=== PATIENT | male | born 1970 | race Caucasian/White ===

== ENCOUNTER 2017-07-20 10:51 | Emergency (ER) | payer BC ==
[2017-07-20] MEDS ORDERED: Morphine INJ* 2 MG/ML 1 ML CARPUJECT IV ONE (12:30)
[2017-07-20] MEDS ORDERED: NS 0.9% 1000 ML* 1,000 ML IV ONE (12:30)
[2017-07-20] MEDS ORDERED: Morphine INJ* 2 MG/ML 1 ML SYRINGE (TWO MG - NEW SYRINGE VERSION) ONE (12:41)
[2017-07-20 13:13] LABS: ABS Basophils 0.1 10^3/ul (0-0.2); ABS Eosinophils 0.1 10^3/ul (0-0.6); ABS Monocytes 0.6 10^3/ul (0-0.8); ABS Neutrophils 10.8 10^3/ul (1.5-7.7); ABS Nucleated RBC 0 10^3/ul; Eosinophil % 0.4 % (0-6); Hematocrit 43 % (42-52); Hemoglobin 14.3 g/dl (14.0-18.0); Lymphocyte % 14.7 % (25-47); Mean Corpuscular HGB Conc 34 g/dl (31-36); Mean Corpuscular Hemoglobin 32 pg (27-31); Mean Corpuscular Volume 96 fL (80-94); Mean Platelet Volume 8 um3 (7.4-10.4); Nucleated Red Blood Cells % 0; Platelet Count 236 10^3/ul (150-450); Red Blood Count 4.45 10^6/ul (4.0-5.4); Red Cell Distribution Width 13 % (10.5-15); White Blood Count 13.4 10^3/ul (3.5-10.8)
[2017-07-20 13:20] LABS: Urine Appearance Cloudy; Urine Blood 3+ (Negative); Urine Color Amber; Urine Ketones Negative (Negative); Urine Protein 1+(30 mg/dL) (Negative); Urine Specific Gravity 1.024 (1.010-1.030); Urine Urobilinogen Negative (Negative)
[2017-07-20 13:27] LABS: EGFR Non-African American 72.2 (>60)
--- NOTE | 2017-07-20 13:56 | RAD ---
INDICATION: Right flank pain COMPARISON: None TECHNIQUE: Noncontrast axial source images were acquired from the level hemidiaphragms to the symphysis pubis as part of CT imaging for renal stone. Lung bases: The lung bases are clear. Liver: The liver is normal in size. Noncontrast imaging shows no evidence of a hepatic mass or ductal dilatation. Gallbladder: There are no calcified gallstones. There is no evidence of wall thickening or pericholecystic fluid.. Spleen: The spleen is normal in size. The noncontrast CT appearance is normal. Pancreas: Noncontrast imaging shows no pancreatic mass or ductal dilitation. Adrenal glands: No masses are identified. Kidneys/Bladder: There is a nonobstructed 2 mm upper pole renal calculus. There is no hydronephrosis. There is mild right-sided hydroureter with a 1 to 2 mm calculus at the right ureterovesical junction (or this calculus has just passed into the bladder and presence of. Noncontrast imaging shows no evidence of a renal mass. The bladder is unremarkable.. Adenopathy: There is no evidence of intraperitoneal or retroperitoneal adenopathy. Evaluation is limited without oral contrast. Fluid collections: There are no free or localized fluid collections. Vessels: The aorta and iliac vessels are normal in caliber. There are no significant atherosclerotic changes. The IVC appears normal Pelvic organs: The prostate and seminal vesicles appear normal GI tract: Evaluation of the bowel is limited without oral contrast. The stomach, small bowel, and lower GI tract appear grossly normal. There are no obstructive findings. The appendix is visualized and appears normal. Soft tissues: No soft tissue abnormalities of the extraperitoneal abdomen or pelvis are identified. Osseous structures: There are no acute osseous findings. IMPRESSION: 1 TO 2 MM CALCULUS NEAR THE RIGHT UVJ WITH MILD RIGHT-SIDED HYDROURETER. RIGHT-SIDED NEPHROLITHIASIS.
[2017-07-20 15:24] VITALS: BP 153/87
--- NOTE | 2017-08-08 17:44 | ED ---
Landry Brantley Gabriel, scribed for Fareed Stanford MD on 07/20/17 at 1226 . Abdominal Pain/Male - HPI Summary HPI Summary: This patient is a 46 year old M presenting to [facility] accompanied by with a chief complaint of right sided ABD pain since 10:00 this morning. The patient rates the sharp pain 8/10 in severity and describes it as intermittent. Patient reports nausea, hematuria, trouble urinating, groin pain, and chills. Patient denies vomiting, fever, and dysuria. - History of Current Complaint Chief Complaint: EDFlankPain Stated Complaint: ABD PAIN/BACK PAIN Hx Obtained From: Patient Onset/Duration: Lasting Hours - since 10:00, Still Present Timing: Intermittent Severity Initially: Moderate Severity Currently: Mild Pain Intensity: 8 Pain Scale Used: 0-10 Numeric Location: Diffuse Radiates: Yes Radiates to: Other - groin Character: Sharp Associated Signs And Symptoms: Positive: Negative - vomiting, fever, groin pain , and dysuria., Other - reports nausea, hematuria, trouble urinating, and chills - Allergies/Home Medications Allergies/Adverse Reactions: Allergies Allergy/AdvReac Type Severity Reaction Status Date / Time Penicillins Allergy Hives Verified 07/20/17 12:56 PMH/Surg Hx/FS Hx/Imm Hx Previously Healthy: Yes Endocrine/Hematology History: Denies: Hx Diabetes Cardiovascular History: Denies: Hx Atrial Fibrillation, Hx Hypertension, Hx Myocardial Infarction History: Denies: Hx Kidney Stones EENT History: Denies: Hx Deafness Psychiatric History: Reports: Hx Anxiety, Hx Depression Infectious Disease History: No Infectious Disease History: Denies: Traveled Outside the [place] in Last 30 Days - Family History Known Family History: Positive: Other - mother had AFib Negative: Cardiac Disease, Hypertension, Renal Disease - Social History Lives: With Family Review of Systems Positive: Chills. Negative: Fever Positive: Abdominal Pain - and flank pain on right side , Nausea. Negative: Vomiting Positive: hematuria, other - trouble urinating . Negative: dysuria Positive: Other - groin pain All Other Systems Reviewed And Are Negative: Yes Physical Exam - Summary Physical Exam Summary: Appearance: Well-appearing, Well-nourished Skin: Warm, Dry, No rash Eyes: Normal, PERRL, EOMI, sclera anicteric ENT: Normal Neck: Supple, nontender Respiratory: Clear to auscultation Cardiovascular: S1, S2, no murmur, no rub, no gallop Abdomen: Soft, right sided flank pain, no organomegaly Bowel sounds: Present Musculoskeletal: Normal, Strength/ROM Intact, no edema, pulses symmetrical Neurological: Normal, A&Ox3, cranial nerves II-XII WNL, follows commands, gait not tested, sensation intact to pin and light touch Psychiatric: affect normal, behavior appropriate, dressed appropriately, judgment intact Triage Information Reviewed: Yes Vital Signs On Initial Exam: Initial Vitals Temp Pulse Resp BP Pulse Ox 97.1 F 79 20 162/94 100 07/20/17 11:13 07/20/17 11:13 07/20/17 11:13 07/20/17 11:13 07/20/17 11:13 Vital Signs Reviewed: Yes Diagnostics - Vital Signs Vital Signs Temp Pulse Resp BP Pulse Ox 07/20/17 11:13 97.1 F 79 20 162/94 100 - Laboratory Lab Results: Lab Results 07/20/17 07/20/17 07/20/17 Range/Units 12:45 12:45 12:45 WBC 13.4 H (3.5-10.8) 10^3/ul RBC 4.45 (4.0-5.4) 10^6/ul Hgb 14.3 (14.0-18.0) g/dl Hct 43 (42-52) % MCV 96 H (80-94) fL MCH 32 H (27-31) pg MCHC 34 (31-36) g/dl RDW 13 (10.5-15) % Plt Count 236 (150-450) 10^3/ul MPV 8 (7.4-10.4) um3 Neut % (Auto) 80.1 (38-83) % Lymph % (Auto) 14.7 L (25-47) % Elmore % (Auto) 4.4 (1-9) % Eos % (Auto) 0.4 (0-6) % Baso % (Auto) 0.4 (0-2) % Absolute Neuts (auto) 10.8 H (1.5-7.7) 10^3/ul Absolute Lymphs (auto) 2.0 (1.0-4.8) 10^3/ul Absolute Monos (auto) 0.6 (0-0.8) 10^3/ul Absolute Eos (auto) 0.1 (0-0.6) 10^3/ul Absolute Basos (auto) 0.1 (0-0.2) 10^3/ul Absolute Nucleated RBC 0 10^3/ul Nucleated RBC % 0 Sodium 138 (133-145) mmol/L Potassium TNP Chloride 104 (101-111) mmol/L Carbon Dioxide 24 (22-32) mmol/L Anion Gap 10 (2-11) mmol/L BUN 20 (6-24) mg/dL Creatinine 1.09 (0.67-1.17) mg/dL Est GFR ( Amer) 92.9 (>60) Est GFR (Non-Af Amer) 72.2 (>60) BUN/Creatinine Ratio 18.3 (8-20) Glucose 144 H (70-100) mg/dL Calcium 9.6 (8.6-10.3) mg/dL Total Bilirubin 0.50 (0.2-1.0) mg/dL AST TNP ALT 59 H (7-52) U/L Alkaline Phosphatase 111 H (34-104) U/L Total Protein 7.6 (6.4-8.9) g/dL Albumin 4.4 (3.2-5.2) g/dL Globulin 3.2 (2-4) g/dL Albumin/Globulin Ratio 1.4 (1-3) Urine Color [place] Urine Appearance Cloudy Urine pH 5.0 (5-9) Ur Specific [place] 1.024 (1.010-1.030) Urine Protein 1+(30 mg/dl) H (Negative) Urine Ketones Negative (Negative) Urine Blood 3+ H (Negative) Urine Nitrate Negative (Negative) Urine Bilirubin Negative (Negative) Urine Urobilinogen Negative (Negative) Ur Leukocyte Esterase 1+ H (Negative) Urine WBC (Auto) 3+(>20/hpf) H (Absent) Urine RBC (Auto) 3+(>10/hpf) H (Absent) Ur Squamous Epith Cells Present H (Absent) Urine Bacteria 1+ H (Absent) Urine Sperm Present H (Absent) Urine Glucose Negative (Negative) 07/20/ Range/Units 13:38 WBC (3.5-10.8) 10^3/ul RBC (4.0-5.4) 10^6/ul Hgb (14.0-18.0) g/dl Hct (42-52) % MCV (80-94) fL MCH (27-31) pg MCHC (31-36) g/dl RDW (10.5-15) % Plt Count (150-450) 10^3/ul MPV (7.4-10.4) um3 Neut % (Auto) (38-83) % Lymph % (Auto) (25-47) % Elmore % (Auto) (1-9) % Eos % (Auto) (0-6) % Baso % (Auto) (0-2) % Absolute Neuts (auto) (1.5-7.7) 10^3/ul Absolute Lymphs (auto) (1.0-4.8) 10^3/ul Absolute Monos (auto) (0-0.8) 10^3/ul Absolute Eos (auto) (0-0.6) 10^3/ul Absolute Basos (auto) (0-0.2) 10^3/ul Absolute Nucleated RBC 10^3/ul Nucleated RBC % Sodium (133-145) mmol/L Potassium 4.3 Chloride (101-111) mmol/L Carbon Dioxide (22-32) mmol/L Anion Gap (2-11) mmol/L BUN (6-24) mg/dL Creatinine (0.67-1.17) mg/dL Est GFR ( Amer) (>60) Est GFR (Non-Af Amer) (>60) BUN/Creatinine Ratio (8-20) Glucose (70-100) mg/dL Calcium (8.6-10.3) mg/dL Total Bilirubin (0.2-1.0) mg/dL AST 42 H ALT (7-52) U/L Alkaline Phosphatase (34-104) U/L Total Protein (6.4-8.9) g/dL Albumin (3.2-5.2) g/dL Globulin (2-4) g/dL Albumin/Globulin Ratio (1-3) Urine Color Urine Appearance Urine pH (5-9) Ur Specific [place] (1.010-1.030) Urine Protein (Negative) Urine Ketones (Negative) Urine Blood (Negative) Urine Nitrate (Negative) Urine Bilirubin (Negative) Urine Urobilinogen (Negative) Ur Leukocyte Esterase (Negative) Urine WBC (Auto) (Absent) Urine RBC (Auto) (Absent) Ur Squamous Epith Cells (Absent) Urine Bacteria (Absent) Urine Sperm (Absent) Urine Glucose (Negative) Result Diagrams: 07/20/17 12:45 07/20/17 13:38 Lab Statement: Any lab studies that have been ordered have been reviewed, and results considered in the medical decision making process. - CT CT ABD/Pelvis CT Interpretation Completed By: Radiologist - 1 TO 2 MM CALCULUS NEAR THE RIGHT UVJ WITH MILD RIGHT-SIDED HYDROURETER. RIGHT-SIDED NEPHROLITHIASIS. ED physician has reviewed this radiology report. Re-Evaluation - Re-Evaluation First Eval Re-Evaluation Time: 13:37 Change: Improved - Patient reports pain is better, as well as nausea and I discussed lab results. Abdominal Pain Fem Course/Dx - Course Assessment/Plan: This patient is a 46 year old M presenting to [facility] accompanied by with a chief complaint of right sided ABD pain since 10:00 this morning. The patient rates the sharp pain 8/10 in severity and describes it as intermittent. Patient reports nausea, hematuria, trouble urinating, and chills. Patient denies vomiting, fever, groin pain, and dysuria. . CT ABD/ Pelvis reveals, per radiologist, 1 TO 2 MM CALCULUS NEAR THE RIGHT UVJ WITH MILD RIGHT-SIDED HYDROURETER. RIGHT-SIDED NEPHROLITHIASIS. Test results with no significant abnormalities except for WBC of 13.4. Therefore patient will be sent home with diagnoses of renal calculus and possible UTI. In the ED course the patient was given IV fluids and Morphine. Patient will be discharged with prescription for Ciprofloxacin and tamsulosin and follow up from Dr. Hyatt. The patient is agreeable with this plan. - Diagnoses Provider Diagnoses: Renal calculus, Possible urinary tract infection Discharge - Discharge Plan Condition: Good Disposition: HOME Prescriptions: Ciprofloxacin TAB* [Cipro 500 MG TAB*] 500 mg PO BID 5 Days #10 tab Tamsulosin HCl [Flomax] 0.4 mg PO DAILY 30 Days #30 cap Patient Education Materials: Urinary Tract Infection in Men (ED), Ureteral Stones (ED) Referrals: Wero Hyatt MD [Primary Care Provider] - Additional Instructions: strain all urine, save stone and bring to primary doctor The documentation as recorded by the Landry mojica Gabriel accurately reflects the service I personally performed and the decisions made by me, Fareed Stanford MD.
== END 2017-07-20 15:20 | disposition home or self-care (01) ==
LOC: ED 10:51
DX: N20.0 Calculus of kidney (principal); R50.9 Fever, unspecified; R30.0 Dysuria; R11.0 Nausea; R31.9 Hematuria, unspecified; R10.84 Generalized abdominal pain
CPT/HCPCS: 36415; 74176; 80053; 81003; 81015; 85025; 87086; 96361; 96374; 96375; 99283; J2270